=== PATIENT | female | born 1975 | race American Indian/Alaskan Native ===

== ENCOUNTER 2022-01-29 07:58 | Day surgery (SDC) | payer BC, OTHER ==
[~2022-01-29 07:58] MED LIST: SODIUM CHLORIDE 0.9% 1000 ML 1,000 ML IV SCH
--- NOTE | 2022-01-29 08:53 | Anesthesia Day of Surgery ---
Anesthesia Day of Surgery - Day of Surgery Patient Examined: Yes Patient H&P Reviewed: Yes Patient is NPO: Yes
--- NOTE | 2022-01-29 08:54 | Anesthesia Consultation ---
Anesthesia Consult and Med Hx Date of service: 01/29/22 - Airway Anesthetic Teeth Evaluation: Good ROM Head & Neck: Adequate Mental/Hyoid Distance: Adequate Mallampati Class: Class II Intubation Access Assessment: Good - Pre-Operative Health Status ASA Pre-Surgery Classification: ASA3 Proposed Anesthetic Plan: MAC - Pulmonary Hx Smoking: Yes Hx Sleep Apnea: Yes - Cardiovascular System Hx Hypertension: Yes - Gastrointestinal Hx Gastroesophageal Reflux Disease: No - Endocrine Hx Non-Insulin Dependent Diabetes: Yes - Hematic Hx Sickle Cell Disease: Yes (Trait) - Other Systems Hx Obesity: Yes (BMI 51)
[2022-01-29] MEDS ORDERED: propofoL 200 MG/20 ML VIAL IV ONE (10:10)
--- NOTE | 2022-01-29 10:39 | Short Stay Summary ---
Short Stay Documentation Date of service: 01/29/22 Narrative H&P: The patient presents for her first screening colonoscopy. Average risk profile. - History Past Medical History: diabetes, hypertension, other (obesity) Past Surgical History: Social history: no significant social history, lives with family - Allergies and Medications Current Medications: Allergies No Known Allergies Allergy (Unverified 04/29/14 14:08) Home Medications Medication Instructions Recorded Confirmed Last Taken Type Atorvastatin Calcium 20 mg PO DAILY 01/28/22 01/28/22 Unknown History Olmesartan-Hctz 40-25 mg Tab 01/28/22 Unknown History Valacyclovir 500 mg PO DAILY 01/28/22 01/28/22 Unknown History Verapamil 120 mg PO DAILY 01/28/22 01/28/22 Unknown History metFORMIN 500 mg PO DAILY 01/28/22 01/28/22 Unknown History Active Medications Sodium Chloride (Nacl 0.9% 1000 Ml) 1,000 mls @ 50 mls/hr IV 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 moist/pink Lungs: Clear to auscultation, Normal air movement Breasts: deferred Heart: Regular rate, Normal S1, Normal S2, No murmurs, Murmur, Gallops Gastrointestinal: normoactive bowel sounds, no tenderness, no distended, no masses, no guarding, no organomegaly, obese Female Genitourinary: deferred Rectal Exam: normal exam-external/orifice, no tenderness, no mass Extremities: no ischemia, pulses intact, pulses symmetrical, No edema, normal temperature, normal color, Full ROM Neurological: Normal gait, Normal speech, Strength at 5/5 X4 ext, Normal tone, Sensation intact, Cranial nerves 3-12 NL - Brief post op/procedure progress note Date of procedure: 01/29/22 Findings: see dictation Estimated blood loss: none Pathology: list (Descending colon polyp) Specimen disposition: to lab Condition: stable - Disposition Condition at discharge: Good Disposition: 01 HOME / SELF CARE / HOMELESS - Discharge Diagnoses (1) Colon cancer screening Status: Acute Short Stay Discharge Plan Activity: other (no driving for 24 hours) Weight Bearing Status: Full Weight Bearing Follow up with: REID ONEILL MD [Primary Care Provider] - 7 Days
--- NOTE | 2022-01-29 10:41 | Operative Report ---
Operative Report Operative Report: Date of procedure: 01/29/2022 Preprocedure diagnosis: Colon cancer screening, no prior studies, average risk profile Post procedure diagnosis: 11 mm pedunculated descending colon polyp Procedure: Colonoscopy to the cecum with snare cautery polypectomy Endoscopist: Dr. Major Anesthesia: Monitored anesthesia care per anesthesia department Estimated blood loss: 0 Medications: Monitored anesthesia care. See separate report by anesthesia for details. After careful discussion of the nature and purpose of the procedure as well as details of the technique risks benefits and alternatives the patient gave consent. Please see recent history and physical from the office. The patient was placed in the left lateral decubitus position and medicated per anesthesia. A rectal exam was performed sphincter tone was normal there were no masses palpable. The TRUSTen 570 scope was passed transanally and advanced under continuous direct vision without difficulty to the cecum. The colon was well prepared. The cecum was normal. The ascending colon was normal and on forward and retroflexed views. There was an 11 mm pedunculated polyp in the proximal descending colon. The polyp had a relatively broad-based attachment. The polyp was removed completely with snare electrocautery and retrieved by suction. The transverse colon and sigmoid colon were normal. The rectum was normal on forward and retroflexed views. The procedure was well-tolerated overall and the patient was observed in recovery. Conclusions: 11 mm pedunculated transverse colon polyp. Normal study otherwise. Plan: Await pathology. Repeat colonoscopy in 3 years. Signed electronically: Real Major M.D.
--- NOTE | 2022-01-29 15:35 | Post Anesthesia Evaluation ---
- Post Anesthesia Evaluation Patient Participated: Yes Airway Patent: Yes Stable Respiratory Function: Yes Nausea/Vomiting: No Temp > 96.8F: Yes Pain Manageable: Yes Adequeate Hydration: Yes Anesthesia Complications: No Block Receding Appropriately: Not Applicable Patient on Ventilator: No
[2022-01-29 16:01] VITALS: BP 125/78
== END 2022-01-29 11:00 | disposition home or self-care (01) ==
LOC: GIO 07:58
PROVIDERS: ATTEND Internal Medicine Gastroenterology
DX: Z12.11 Encounter for screening for malignant neoplasm of colon (principal); D12.4 Benign neoplasm of descending colon; F17.210 Nicotine dependence, cigarettes, uncomplicated; I10 Essential (primary) hypertension; E11.9 Type 2 diabetes mellitus without complications; G47.30 Sleep apnea, unspecified; E66.9 Obesity, unspecified; Z79.899 Other long term (current) drug therapy; Z79.84 Long term (current) use of oral hypoglycemic drugs; Z68.43 Body mass index [BMI] 50.0-59.9, adult
CPT/HCPCS: 45385; 82962; 88305; J2704; J7030